=== PATIENT | female | born 1970 | race Caucasian/White ===

== ENCOUNTER → 2017-07-10 | Day surgery (SDC) | payer OTHER, BC ==
[~2017-07-10] MED LIST: Acetaminophen/oxyCODONE 325-5 MG Tab PO PRN; Bupivacaine 0.5% 30 ML SDV ONE; Dexamethasone 4 MG/ML 5 ML MDV ONE; Famotidine 20 MG/2 ML SDV ONE; HYDROmorphone 0.5 MG/0.5 ML Syringe IVPUSH PRN; Haloperidol Lactate 5 MG/ML SDV IVPUSH ONE; Ketamine 500 mg/10 ML MDV ONE; Ketorolac 30 MG/ML SDV ONE; Lactated Ringers 1,000 ML ONE; Lidocaine 1% 4 ML ONE; Lidocaine 1% with EPINEPHrine 1:100,000 20 ML MDV ONE; Lidocaine 1%/Sod Bicarbonate in NS 8.4% 1 ML Syringe IDERM PRN; Meperidine PF 50 MG/ML Syringe IVPUSH PRN; Midazolam 1 MG/ML 2 ML SDV ONE; Ondansetron 4 MG/2 ML SDV IVPUSH PRN; Ondansetron 4 MG/2 ML SDV ONE; Propofol 200 MG/20 ML SDV ONE; Rocuronium 50 MG/5 ML Vial ONE; Scopolamine 1.5 MG Transdermal Patch TRDERM PRN; Sodium Chloride 0.9% 10 ML Syringe FLUSH PRN; Sodium Chloride 0.9% 50 ML SDV ONE; ceFAZolin 1 GM Vial ONE; diphenhydrAMINE 50 MG/ML SDV IVPUSH PRN; diphenhydrAMINE 50 MG/ML SDV ONE; fentaNYL 100 MCG/2 ML SDV IVPUSH PRN; fentaNYL 250 MCG/5 ML SDV ONE
[2017-07-10] MEDS: Lactated Ringers 1,000 ML IV SCH ×2 (07:15→12:52)
--- NOTE | 2017-07-10 07:29 | PCM.PREANE ---
Preanesthetic Assessment - Anesthesia/Transfusion/Family Hx Anesthesia History: Prior Anesthesia Reaction Type of Anesthesia Reaction: Excessive Nausea/Vomiting Family History of Anesthesia Reaction: No Transfusion History: No Prior Transfusion(s) - Review of Systems General: No Symptoms Pulmonary: No Symptoms Cardiovascular: No Symptoms Gastrointestinal: No Symptoms Neurological: No Symptoms Other: Reports: None - Physical Assessment NPO Status Date: 07/09/17 NPO Status Time: 21:30 O2 Sat by Pulse Oximetry: 98 Respiratory Rate: 16 Vital Signs: Last Vital Signs Temp 36.9 C 07/10/17 06:50 Pulse 68 07/10/17 06:50 Resp 16 07/10/17 06:50 BP 108/74 07/10/17 06:50 Pulse Ox 98 07/10/17 06:50 ASA Class: 1 Mental Status: Alert & Oriented x3 Airway Class: Mallampati = 1 Dentition: Reports: Normal Dentition Thyro-Mental Finger Breadths: 3 Mouth Opening Finger Breadths: 3 ROM/Head Extension: Full Lungs: Clear to Auscultation, Normal Respiratory Effort Cardiovascular: Regular Rate, Regular Rhythm - Lab Values: Laboratory Last Values WBC 6.34 K/mm3 (3.98-10.04) 07/09/17 13:07 RBC 4.56 M/mm3 (3.98-5.22) 07/09/17 13:07 Hgb 14.3 gm/L (11.2-15.7) 07/09/17 13:07 Hct 42.4 % (34.1-44.9) 07/09/17 13:07 MCV 93.0 fl (79.4-94.8) 07/09/17 13:07 MCH 31.4 pg (25.6-32.2) 07/09/17 13:07 MCHC 33.7 g/dl (32.2-35.5) 07/09/17 13:07 RDW Std Deviation 42.8 fL (36.4-46.3) 07/09/17 13:07 Plt Count 303 K/mm3 (182-369) 07/09/17 13:07 MPV 9.0 fl (9.4-12.3) L 07/09/17 13:07 Neut % (Auto) 56.6 % (34.0-71.1) 07/09/17 13:07 Lymph % (Auto) 33.9 % (19.3-51.7) 07/09/17 13:07 [place] % (Auto) 7.3 % (4.7-12.5) 07/09/17 13:07 Eos % (Auto) 1.4 (0.7-5.8) 07/09/17 13:07 Baso % (Auto) 0.6 % (0.1-1.2) 07/09/17 13:07 Neut # (Auto) 3.59 K/mm3 (1.56-6.13) 07/09/17 13:07 Lymph # (Auto) 2.15 K/mm3 (1.18-3.74) 07/09/17 13:07 [place] # (Auto) 0.46 K/mm3 (0.24-0.36) H 07/09/17 13:07 Eos # (Auto) 0.09 K/mm3 (0.04-0.36) 07/09/17 13:07 Baso # (Auto) 0.04 K/mm3 (0.01-0.08) 07/09/17 13:07 Creatinine 0.9 mg/dL (0.55-1.02) 07/09/17 13:07 Est Cr Clr Drug Dosing TNP 07/09/17 13:07 Estimated GFR (MDRD) > 60 mL/min (>60) 07/09/17 13:07 HCG, Qual Negative (NEGATIVE) 07/09/17 13:07 Urine Color Light yellow (Yellow) 07/09/17 13:07 Urine Appearance Clear (Clear) 07/09/17 13:07 Urine pH 7.0 (5.0-8.0) 07/09/17 13:07 Ur Specific [place] 1.015 (1.005-1.030) 07/09/17 13:07 Urine Protein Negative (Negative) 07/09/17 13:07 Urine Glucose (UA) Negative (Negative) 07/09/17 13:07 Urine Ketones Negative (Negative) 07/09/17 13:07 Urine Occult Blood Negative (Negative) 07/09/17 13:07 Urine Nitrite Negative (Negative) 07/09/17 13:07 Urine Bilirubin Negative (Negative) 07/09/17 13:07 Urine Urobilinogen 0.2 (0.2-1.0) 07/09/17 13:07 Ur Leukocyte Esterase Negative (Negative) 07/09/17 13:07 Blood Type A POSITIVE 07/09/17 13:07 Gel Antibody Screen Negative 07/09/17 13:07 - Allergies Allergies/Adverse Reactions: Allergies Allergy/AdvReac Type Severity Reaction Status Date / Time No Known Allergies Allergy Verified 07/09/17 12:16 - Anesthesia Plan Pre-Op Medication Ordered: Anxiolytic - Acknowledgements Anesthesia Type Planned: General Anesthesia Pt an Appropriate Candidate for the Planned Anesthesia: Yes Alternatives and Risks of Anesthesia Discussed w Pt/Guardian: Yes Pt/Guardian Understands and Agrees with Anesthesia Plan: Yes PreAnesthesia Questionnaire HEENT History: Reports: Impaired Vision, Other (See Below) Other HEENT History: wears glasses Cardiovascular History: Reports: None Respiratory History: Reports: None Gastrointestinal History: Reports: None Genitourinary History: Reports: None COMMERCIAL RELATIONSHIP MANAGER History: Reports: Endometriosis, Spontaneous , Other (See Below) Other OB/BYN History: dysmenorrhea, menorrhagia Musculoskeletal History: Reports: None Neurological History: Reports: None Psychiatric History: Reports: None Endocrine/Metabolic History: Reports: None Hematologic History: Reports: None Immunologic History: Reports: None Oncologic (Cancer) History: Reports: None Dermatologic History: Reports: None - Past Surgical History Head Surgeries/Procedures: Reports: None Cardiovascular Surgical History: Reports: None Respiratory Surgical History: Reports: None GI Surgical History: Reports: None Female Surgical History: Reports: Section, D&C Male Surgical History: Reports: None Endocrine Surgical History: Reports: None Neurological Surgical History: Reports: None Musculoskeletal Surgical History: Reports: None Oncologic Surgical History: Reports: None Dermatological Surgical History: Reports: None - SUBSTANCE USE Smoking Status *Q: Never Smoker Recreational Drug Use History: No - HOME MEDS Home Medications: Home Meds Calcium Carbonate [Calcium] 500 mg PO DAILY 07/09/17 [History] Methylcellulose [Fiber] 500 mg PO DAILY 07/09/17 [History] - CURRENT (IN HOUSE) MEDS Current Meds: Current Medications Lactated Ringer's (Ringers, Lactated) 1,000 mls @ 125 mls/hr IV ASDIRECTED BROWN Stop: 07/10/17 23:00 Lidocaine/Sodium Bicarbonate (Buffered Lidocaine 1% In Ns 8.4%) 0.25 ml IDERM ONETIME PRN PRN Reason: Prior to IV Start Stop: 07/10/17 18:00 Scopolamine (Transderm-Scop) 1.5 mg TRDERM Q72H PRN PRN Reason: Nausea/Vomiting Sodium Chloride (Saline Flush) 10 ml FLUSH ASDIRECTED PRN PRN Reason: Keep Vein Open Stop: 07/10/17 18:00 Discontinued Medications Bupivacaine HCl (Marcaine 0.5%) Confirm Administered Dose 30 ml .ROUTE .STK-MED ONE Stop: 07/10/17 07:08 Cefazolin Sodium (Ancef) Confirm Administered Dose 2 gm .ROUTE .STK-MED ONE Stop: 07/10/17 07:06 Dexamethasone (Dexamethasone) Confirm Administered Dose 20 mg .ROUTE .STK-MED ONE Stop: 07/10/17 07:07 Fentanyl (Sublimaze) Confirm Administered Dose 250 mcg .ROUTE .STK-MED ONE Stop: 07/10/17 07:07 Lactated Ringer's (Ringers, Lactated) Confirm Administered Dose 1,000 mls @ as directed .ROUTE .ST-MED ONE Stop: 07/10/17 07:06 Lidocaine HCl (Xylocaine-Mpf 1%) Confirm Administered Dose 4 mls @ as directed .ROUTE .STK-MED ONE Stop: 07/10/17 07:07 Ketorolac Tromethamine (Toradol) Confirm Administered Dose 30 mg .ROUTE .STK- MED ONE Stop: 07/10/17 07:07 Lidocaine/Epinephrine (Xylocaine 1% With Epinephrine 1:100,000) Confirm Administered Dose 20 ml .ROUTE .STK-MED ONE Stop: 07/10/17 07:08 Midazolam HCl (Versed 1 Mg/Ml) Confirm Administered Dose 2 mg .ROUTE .STK-MED ONE Stop: 07/10/17 07:06 Ondansetron HCl (Zofran) Confirm Administered Dose 4 mg .ROUTE .STK-MED ONE Stop: 07/10/17 07:06 Ondansetron HCl (Zofran) Confirm Administered Dose 4 mg .ROUTE .STK-MED ONE Stop: 07/10/17 07:07 Propofol (Diprivan 20 Ml) Confirm Administered Dose 400 mg .ROUTE .STK-MED ONE Stop: 07/10/17 07:06 Rocuronium [place] (Zemuron) Confirm Administered Dose 50 mg .ROUTE .STK-MED ONE Stop: 07/10/17 07:06 Sodium Chloride (Normal Saline) Confirm Administered Dose 50 ml .ROUTE .STK-MED ONE Stop: 07/10/17 07:08
--- NOTE | 2017-07-10 09:46 | PCM.OPNOTE ---
- General Post-Op/Procedure Note Date of Surgery/Procedure: 07/10/17 Operative Procedure(s): Laparoscopically Assisted vaginal hysterectomy with bilateral salpingectomy and lysis of pelvic adhesions Findings: Patient had endometriosis involving left ovary. Significant multiple scarring involving both fallopian tubes, posterior cul-de-sac, both ovaries. Minimal scarring in the anterior cul-de-sac. The appendix appeared flaccid and normal in appearance liver edge and gallbladder appeared normal. Pre Op Diagnosis: 1. Dysmenorrhea. 2. Menorrhagia. 3. Endometriosis Post-Op Diagnosis: Same Anesthesia Technique: General ET Tube Other Anesthesia Type: Local anesthesia with both Marcaine 0.5% and lidocaine 1/ 4% with epinephrin Primary Surgeon: Bernardino Ferrara Secondary Surgeon: Kasi Mas Anesthesia Provider: Keiry Guzmán Reason Head Athletic Trainer/Strength Coach Was Necessary: Retraction, assistance, patient's safety, quality of care Role of Head Athletic Trainer/Strength Coach: Retraction, assistance Pathology: Uterus, bilateral fallopian tubes as 1 specimen Fluid Replacement, Intraop: 2,500 Output, Urine Amount: 50 EBL in mLs: 25 Drain/Tube Comments:: Indwelling bladder catheter during surgery only removed, removed at the end of the case. Complications: None Condition: Good Free Text/Narrative:: Surgery duration: 68 minutes The patient was taken to the operating room placed in supine position on the operating table. She received 2 g of Ancef preoperatively for infection prophylaxis. She had signed consent previously. After adequate anesthesia patient was placed in a dorsal lithotomy position. It should be noted she had sequential compression stockings in place for DVT prophylaxis. Exam was done under anesthesia. A uterine manipulator was placed as was an latex free indwelling bladder catheter. This was done after adequate prepping and draping. The patient was placed in supine position and 5 laparoscopic port sites were developed. Initial entry was in the left upper quadrant. Marcaine 0.5% approximately 3-5 mL was injected at each site. Verres needle was placed and pneumoperitoneum was achieved with 3 L of CO2 through the left upper quadrant ports site. Initially posterior cul-de-sac adhesions were taken down using the Enseal cautery system. Left sloping tube was released from an adhesion to the posterior uterus. Infraumbilical, suprapubic and 2 lateral port sites were developed. Under laparoscopic guidance the upper portion of the hysterectomy was performed. . The adhesions and many permanent sutures were noted in the right, left ovarian and fallopian tube area and posterior cul-de-sac. The meso- salpinx was taken down using the Enseal vessel closure system. Round ligament and broad ligament Broad ligament was taken down to the area of the uterine vasculature. The ovaries were conserved bilaterally. Uterine vasculature was developed in the usual fashion using the Enseal cautery system. Both uterine arteries were identified and developed. Anterior cul-de-sac entered name was incised across the lower uterine segment upper cervix in routine fashion. Vaginal approach was then undertaken. The patient was placed in the dorsal lithotomy position and a weighted speculum was placed in the vagina. The cervix was injected with lidocaine quarter percent with epinephrine 20 mL total. A full circumference incision was made through the epithelium around the cervix. Posterior cul-de-sac was entered without problems. The left uterosacral ligament and then the right uterosacral were taken down using the Enseal vessel closure system. The cardinal ligament and what remained of the uterine vascular vessels and cervical branches of the vessels were managed with the Enseal vessel closure system on each side. Anterior cul-de-sac was then entered and the remaining portion of broad ligament on the right side and a small portion of broad ligament remaining on the left side were then developed in the usual fashion. Uterus was then removed. At this point the uterus was completely removed and sent as specimen. The vaginal cuff was then run with a locked running suture of 0 Monocryl from the 2 o'clock position to the 10 o'clock position. The vagina was closed with a running locked suture of 0 Monocryl. Hemostasis was confirmed this time and no bleeding was noted. Laparoscopy was then performed to ensure hemostasis. Pneumoperitoneum was reestablished and the laparoscope was placed. The pelvis was found to be hemostatically intact. There was no evidence of any bowel adhesion to the vaginal cuff area noted. The sleeves were removed under direct visualization and the upper sleeve was removed after reversal of the pneumoperitoneum. Each of these sites were closed with a single interrupted suture of 3-0 Monocryl. They were further approximated with Dermabond skin glue. At this point the patient was awakened from general endotracheal anesthesia. The Zhou catheter had been removed by this time. She is discharged from the operating room in good condition.
--- NOTE | 2017-07-10 09:55 | PCM.POSTAN ---
POST ANESTHESIA ASSESSMENT - MENTAL STATUS Mental Status: Somnolent - VITAL SIGNS Pulse Rate: 62 SaO2: 99 Resp Rate: 16 Blood Pressure: 106/69 Temperature: 36.3 C - RESPIRATORY Respiratory Status: Respiratory Rate WNL, Airway Patent, O2 Saturation Stable, Supplemental Oxygen - CARDIOVASCULAR CV Status: Pulse Rate WNL, Blood Pressure Stable - GASTROINTESTINAL GI Status: No Symptoms - PAIN Pain Score: 0 - POST OP HYDRATION Hydration Status: Adequate & Stable
--- NOTE | 2017-07-10 11:57 | PCM48HPAN ---
Post Anesthesia Note - EVALUATION WITHIN 48HRS OF ANESTHETIC Vital Signs in Normal Range: Yes Patient Participated in Evaluation: Yes Respiratory Function Stable: Yes Airway Patent: Yes Cardiovascular Function Stable: Yes Hydration Status Stable: Yes Pain Control Satisfactory: Yes Nausea and Vomiting Control Satisfactory: Yes Mental Status Recovered: Yes
== END | disposition home or self-care (01) ==
LOC: JD.SDS 06:45
PROVIDERS: ATTEND Obstetrics & Gynecology
DX: N73.6 Female pelvic peritoneal adhesions (postinfective) (principal); Z79.899 Other long term (current) drug therapy
CPT/HCPCS: 36415; 81003; 82565; 84703; 85025; 86850; 86900; 86901; A9270-GY; J0690; J1100; J1200; J1630; J1885; J2001; J2250; J2405; J2704; J3010; J7120